=== PATIENT | male | born 1995 | race Caucasian/White ===

== ENCOUNTER 2023-09-12 06:46 | Emergency (ER) | payer MEDICAID, SELFPAY ==
[2023-09-12 06:46] VITALS: BP 99/68; PULSE 107; RESP 20; TEMP 36.3; O2SAT 94; BMI 33.0
--- NOTE | 2023-09-12 07:06 | EX.ED.DYSGE1 ---
HPI History of Present Illness Chief Complaint: Nausea/Vomiting/Diarrhea Informant: patient Narrative Narrative: Patient presents with nausea vomiting diarrhea and abdominal pain. Tuesday afternoon, patient started with some diarrhea. It then progressed from soft to watery. He then got some cramping and vomiting. He has never seen blood in either. He is continued to have nausea vomiting and diarrhea through this morning. His last episode was about 3 hours ago. He has never had a fever at any time. He has had some increased epigastric pain this morning. He also notes that he really has not urinated a lot and feels very dry. But he has no burning or discomfort with urination. He has no difficulty starting his stream. He has never had any abdominal surgeries. He cannot think of any foods drinks or other exposures that he has had that may have caused this. PFSH PFS Medical History no medical history Home Medications ondansetron 4 mg disintegrating tablet 4 mg PO Q8H PRN PRN Nausea #10 tabs 09/12/23 [Rx Last Taken Unknown] promethazine 25 mg tablet 25 mg PO Q6H PRN PRN Nausea #10 TABLETS 09/12/23 [Rx Last Taken Unknown] Allergy/AdvReac Type Severity Reaction Status Date / Time No Known Allergies Allergy Verified 09/12/23 06:49 Surgical History no surgical history Social History Smoking Status: Never smoker ROS ROS ED ROS Narrative A complete review of systems was performed and is negative except as documented in the history of present illness. Some specific details below. Constitutional: No recent fevers or chills. EYE: No visual complaints or pain. ENT: No difficulty swallowing. No swelling. No pain. No GERD symptoms or history of GERD. CV: No chest pain or palpitations. He has not been lightheaded or syncopal. Respiratory: No dyspnea. No hemoptysis. No difficulty taking breaths. GI: Please see history of present illness. : No frequency dysuria or hematuria. He does state he has decreased amount of urination though. Musculoskeletal: No recent trauma. No pains myalgias or arthralgias. Skin: No rash. Nondiaphoretic. No yellowing of skin. Neuro: No weakness or numbness. Endocrine: No polyuria or polydipsia. EXAM Physical Exam Narrative Exam Narrative: CONSTITUTIONAL: Patient is nontoxic in appearance. The patient looks comfortable. HEENT: No notable trauma. Mucous membranes do look rather dry. No sinus tenderness. No indication of pain with swallowing. EYES: No conjunctival injection. There is no icterus. CARDIOVASCULAR: Mildly tachycardic rate. Regular rhythm. No notable murmur. No JVD. RESPIRATORY: No respiratory distress. Breathing is unlabored. No wheezes. No rhonchi. No rales. No pain with a deep breath. GASTROINTESTINAL: Not distended. Bowel sounds are normal. I feel no mass. There is no hernia. He has some mostly epigastric mild tenderness but no rebound or guarding. I am not getting any tenderness at all in the lower abdomen. Upper abdomen is clearly more central and does not lean right or left. GENITOURINARY: No tenderness over the bladder. No CVA tenderness. MUSCULOSKELETAL: Atraumatic. No peripheral edema. No cord. No tenderness along the deep venous system. No asymmetry. NEUROLOGICAL: Patient is alert and appropriate. No gross focal deficit noted. SKIN: No noted rashes. No diaphoresis. PSYCHIATRIC: Patient is relaxed and appropriate Const Vital Signs: 09/12/23 06:46 Temperature 97.4 F L Temperature Source Temporal Pulse Rate 107 H Respiratory Rate 20 H Blood Pressure 99/68 Blood Pressure Mean 78 Pulse Ox 94 Oxygen Delivery Method Room Air MDM MDM MDM Narrative Medical decision making narrative: CBC shows mild elevation in the white count and slight elevation of hemoglobin. This may be due to some hemoconcentration with dehydration. His platelets are normal though. Basic metabolic panel shows an elevation of his creatinine over normal as well as a slight elevation in glucose. Glucose will need to be rechecked. He is given IV fluids for the suspected dehydration. Liver function test show no marked abnormalities. Lipase is normal at 36. Patient was given IV fluids and Zofran as well as pantoprazole IV. We rechecked him. Both his pain and nausea is better. Pain is almost gone. Nausea is a lot better but still present. We will give him some Phenergan pending completion of IV fluids. We let the patient rest. With fluids and meds he is feeling markedly better. He states that nausea is gone. He states the epigastric pain is almost completely gone. But he feels well. Repeat exam shows very benign abdomen. I do not think we need to do a CT scan at this time. He has no significant elevation in the white count. He has no fever. He has no tenderness of note at all. We did discuss reasons to return that would include worsening pain vomiting blood in the vomitus or stool fevers or other concerns. Lab Data Attestation: I reviewed the patient's lab results. Labs: Laboratory Results - last 24 hr 09/12/23 06:58 WBC 11.6 H RBC 6.27 H Hgb 18.6 H* Hct 58.7 H MCV 93.6 MCH 29.7 MCHC 31.7 L RDW Std Deviation 43.8 RDW Coeff of Ivon 12.7 Plt Count 314 MPV 9.7 Immature Gran % (Auto) 0.300 Neut % (Auto) 71.5 H Lymph % (Auto) 11.4 L [place] % (Auto) 15.6 H Eos % (Auto) 1.1 Baso % (Auto) 0.1 Absolute Neuts (auto) 8.3 H Absolute Lymphs (auto) 1.32 Nucleated RBC % 0 Sodium 136 Potassium 3.8 Chloride 106 Carbon Dioxide 21.0 Anion Gap 9 BUN 23 H Creatinine 1.59 H Estim Creat Clear Calc 84.15 Est GFR (MDRD) Af Amer 68 Est GFR (MDRD) Non-Af 56 L BUN/Creatinine Ratio 14.5 Glucose 162 H Calcium 9.4 Total Bilirubin 0.70 AST 18 ALT 44 Alkaline Phosphatase 104 Total Protein 9.2 H Albumin 4.2 Globulin 5.0 H Albumin/Globulin Ratio 0.8 L Lipase 36 Discharge Plan Triage Chief Complaint: Nausea/Vomiting/Diarrhea ED Provider: Oliver Hennessy Dx/Rx/DC Orders Clinical Impression: Nausea vomiting and diarrhea, Abdominal pain, Dehydration Instructions: ED Vomiting and Diarrhea ... Prescriptions: New promethazine [promethazine] 25 mg tablet 25 mg PO Q6H PRN PRN (Reason: Nausea) Qty: 10 0RF ondansetron [ondansetron] 4 mg tablet,disintegrating 4 mg PO Q8H PRN PRN (Reason: Nausea) Qty: 10 0RF Primary Care Provider: Care Physician,No Primary Referrals: Antoinette Francis MD [Med Staff - Progressive Care Manager] - 3-5 Days if not improving NOT,DEFINED [Non-Staff] - Disposition Disposition: Home, Self Care
[2023-09-12] MEDS: 0.9% Normal Saline (1000mL) 2,000 ML 1000 ML IV (07:11)
[2023-09-12] MEDS: Ondansetron 4 MG/2 ML Vial IV (07:11)
[2023-09-12 07:21] LABS: Absolute Lymphocyte Count 1.32 X10^3/uL (0.83-4.51); Absolute Neutrophil Count 8.3 X10^3/uL (2.0-7.7); Basophil# 0.01 X10^3/uL; Basophil% 0.1 % (0-1); Eosinophil# 0.13 X10^3/uL; Eosinophils% 1.1 % (0-5); Hemoglobin 18.6 g/dL (13.0-16.5); Lymphocyte # 1.32 X10^3/ul (0.83-4.51); Lymphocyte % 11.4 % (19-41); Mean Corp Hgb Conc 31.7 g/dL (32-36); Mean Corpuscular Hgb 29.7 pg (27.0-32.0); Mean Corpuscular Volume 93.6 fL (80-94); Mean Platelet Vol. 9.7 fl (6.2-12.0); Monocyte% 15.6 % (0-10); NRBC Flagged by Analyzer 0 % (0-5); Neutrophil # 8.28 X10^3/uL (2.7-7.7); Neutrophil % 71.5 % (47-70); POSITIVE DIFFERENTIAL YES; POSITIVE MORPHOLOGY YES; Platelet Count 314 K/mm3 (150-450); RBC Distribution Width CV 12.7 % (11.6-14.6); RBC Distribution Width SD 43.8 fl (35.1-43.9); Red Blood Count 6.27 M/mm3 (4.6-6.2); White Blood Count 11.6 K/mm3 (4.4-11.0)
[2023-09-12 07:23] LABS: Differential Indicated SCAN CRITERIA MET; Hematocrit 58.7 % (40-54)
[2023-09-12] MEDS: Pantoprazole Sodium 80 MG in 0.9% Normal Saline (50mL Bag) 15 ML 420 MG IV BOLUS (07:28)
[2023-09-12 07:31] LABS: ALB/GLOB Ratio 0.8 RATIO (0.9-2.4); AST(SGOT) 18 U/L (15-37); Alanine Aminotransfer ALT/SGPT 44 U/L (16-61); Albumin, Serum 4.2 g/dL (3.2-5.0); Alkaline Phosphatase 104 U/L (45-117); Anion Gap 9 (5-15); BUN 23 mg/dL (7-18); BUN/Creat Ratio 14.5 RATIO (10-20); Calcium,Total 9.4 mg/dL (8.5-10.1); Chloride 106 mmol/L (98-107); Creatinine, Serum 1.59 mg/dL (0.70-1.30); EST Glomerular Filtration Rate 56 mL/min (>60); Est Glom Filt Rate - Afr Amer 68 mL/min (>60); Estimated Creatinine Clearance 84.15 ml/min; Glucose 162 mg/dL (74-106); Lipase 36 U/L (13-75); Potassium 3.8 mmol/L (3.5-5.1); Protein, Total 9.2 g/dL (6.4-8.2); Sodium Level 136 mmol/L (136-145)
[2023-09-13 10:28] LABS: Pathologist Review Reviewed
== END 2023-09-12 10:11 | disposition home or self-care (01) ==
PROVIDERS: Emergency Provider Emergency Medicine; Visit Provider Emergency Medicine
DX: R11.2 Nausea with vomiting, unspecified (principal); R19.7 Diarrhea, unspecified; R10.9 Unspecified abdominal pain; E86.0 Dehydration
CPT/HCPCS: 80053; 83690; 85025; 96365; 96375; 99284; J7030; A4216; J2405; J3490

== ENCOUNTER 2024-01-04 12:40 | Emergency (ER) | payer OTHER, SELFPAY ==
[2024-01-04 12:42] VITALS: BP 129/63; PULSE 135; RESP 25; TEMP 36; O2SAT 90; BMI 33.4
--- NOTE | 2024-01-04 13:09 | EDS_ITS ---
HPI History of Present Illness Chief Complaint: Overdose Informant: patient Onset/Context/Timing Onset: Today and Hours Context: Gradual Onset Timing: Continuous Current Severity: Moderate Maximum Severity: Moderate Associated Symptoms Associated Symptoms: Negative for vomiting* or diarrhea* Prehospital Treatment: Naloxone, Glucose, Oxygen, BVM, CPR and other Narrative Narrative: 28-year-old male no seen past medical history. States he is on no chronic medications. Today he bought [id number] THC and its instructions to take 1 wait an hour take another. Patient took 7 at 1 time. Patient thinks it may have been laced. He denies other complaints. He is obviously intoxicated. Prior similar symptoms: No Recent Illness/Hospitalization: No PFSH PFSH Medical History no medical history no medical history Home Medications ondansetron 4 mg disintegrating tablet 4 mg PO Q8H PRN PRN Nausea #10 tabs 09/12/23 [Rx Last Taken Unknown] promethazine 25 mg tablet 25 mg PO Q6H PRN PRN Nausea #10 TABLETS 09/12/23 [Rx Last Taken Unknown] Allergy/AdvReac Type Severity Reaction Status Date / Time No Known Allergies Allergy Verified 09/12/23 06:49 Social History Smoking Status: Never smoker ROS ROS ED ROS Narrative Denies recent illness. Review of Systems ROS Unobtainable: Denies due to encephalopathy Constitutional Constitutional ED: Denies fever(s) Eyes Eyes: Denies burning ENT ENT ED: Denies dental pain Cardiovascular Cardiovascular: Reports none Respiratory/Chest Respiratory/Chest: Denies cough Gastrointestinal Gastrointestinal: Denies abdominal pain Genitourinary Genitourinary ED: Reports none Musculoskeletal Musculoskeletal: Reports none Integumentary Reports none Neurologic Neurologic: Reports none Psychiatric Psychiatric: Reports none Endocrine Endocrinology: Reports none Hematologic/Lymphatic Hematologic/Lymphatic: Reports none Allergic/Immunologic Allergic/Immunologic ED: Reports none EXAM Physical Exam Narrative Exam Narrative: 28-year-old male he is tachycardic on the monitor 135. Otherwise vital signs are stable. H EENT exam unremarkable. He is obviously high at this time. Moist mucous membranes. Neck nontender. Lungs clear to auscultation bilaterally. Heart tachycardic 135 no murmur. Chest wall ribs nontender. Abdomen soft nontender. Moving all 4 extremities. Neurologically is awake. He is alert. His eyes are open. He is answering questions. He is following commands. Const Vital Signs: 01/04/24 12:42 01/04/24 13:41 01/04/24 14:00 Temperature 96.8 F L Temperature Source Temporal Pulse Rate 135 H 126 H Respiratory Rate 25 H 20 H 18 Blood Pressure 129/63 H 105/60 Blood Pressure Mean 85 75 Pulse Ox 90 88 Oxygen Delivery Method Room Air Room Air 01/04/24 15:00 01/04/24 16:00 Temperature Temperature Source Pulse Rate 96 Respiratory Rate 18 16 Blood Pressure 109/57 L Blood Pressure Mean 74 Pulse Ox 91 Oxygen Delivery Method Room Air Positive well nourished, well developed, alert, oriented x3, average body habitus and no limitations; Negative for cachectic, contractures or unkempt General Appearance ED: well developed; Negative for unkempt, cachectic or contractures Orientation / Consciousness: awake and oriented to person Exam Limitations: no limitations; Negative for altered mental status Nutritional Appearance: Negative for cachectic HEENT Reports normocephalic and head/scalp atraumatic normocephalic, normal to inspection and atraumatic; Negative for trauma Face and Sinus: normal facial exam Nose: external nose normal External Ear: external ears normal Mouth ED: Yes oral and palatal mucosa normal Mouth: oral and palatal mucosa normal Throat: posterior oropharynx normal Eyes PERRL, EOMs intact bilaterally, conjunctivae normal and no scleral icterus General Eye ED: Yes normal appearance of both eyes Alignment: alignment normal Periorbital: periorbital findings normal Eyelid: eyelids normal Conjunctiva: conjunctiva normal Sclera: sclera normal Pupil: PERRL Neck full ROM, No nuchal rigidity, no lymphadenopathy, supple, no meningeal signs, no JVD, thyroid normal and No nodes General: normal visual inspection Lymph Lymphatic: no lymphadenopathy noted and no lymphedema noted Chest Wall inspection of chest normal and palpation of chest normal Resp normal respiratory effort, normal air movement, no retractions, no use of accessory muscles and clear to auscultation bilaterally Effort and Inspection: able to speak in complete sentences and symmetric chest movement Auscultation: clear to auscultation bilaterally Cardio regular rhythm, S1 normal heart sound, S2 normal heart sound, no murmurs, no rub, no gallops, no clicks, no JVD and peripheral pulses 2+ throughout; Negative for regular rate or diaphoretic Rate: tachycardic Rhythm: regular rhythm Heart Sounds: S1 normal and S2 normal Peripheral Pulses: pulses 2+ throughout GI normal to inspection, nondistended, normoactive bowel sounds, soft to palpation, non-tender, non-distended and no masses Auscultation: normoactive bowel sounds Palpation: soft; Negative for firm, tender, guarding or rebound tenderness present no CVA tenderness Back/Spine no CVA tenderness, normal ROM and normal to inspection Extremity normal to inspection, full ROM, no joint enlargement, no clubbing, cyanosis or edema, no calf tenderness and no pedal edema Neuro moves all extremities and no focal motor deficits Neuro Narrative: Patient is high. Sensorium / Orientation: awake, alert and oriented to person Speech: speech normal Motor Exam: strength 5/5 throughout Psych mental status grossly normal, thought process normal, cooperative, affect normal, speech normal and activity/motor behavior normal Appearance: grossly normal; Negative for unkempt Attitude: calm and engaged Activity / Motor Behavior: appropriate eye contact Mood & Affect: euthymic mood Thought Process: normal thought process Thought Content: normal thought content Skin no rashes or lesions noted, no wounds, skin turgor normal, no jaundice, no petechiae and no mottling General Skin Exam: no breakdown Lesions: no lesions Rashes: no rashes Trauma: no lacerations or abrasions MDM MDM MDM Narrative Medical decision making narrative: 28-year-old male accidental overdose on THC. Will be observed. Screening labs. Monitor. Repeat exam patient doing well at 3:08 PM patient doing well. Still exhibits signs of being high on the THC. Vital signs are currently stable. His current heart rate is 110. His pulse ox is 98%. He is awake alert. Answering questions. I offered him a talk screen but explained doing that if there was anything else in the edibles that he ate it may not show up and he deferred. Repeat exam at 4:29 PM. Patient is doing well. He sitting upright in bed. He is awake and alert. THC appears to be wearing off. His vital signs are stable. Once he can get a ride home he will be discharged. Lab Data Attestation: I reviewed the patient's lab results. Lab results narrative: CBC unremarkable. White count of 13. H&H 15 and 45. Platelets 374. Electrolytes show potassium 3.1. Gap is 7. Normal BUN of 16. Creatinine of 1.1. Glucose 164. Liver enzymes normal. Labs: Laboratory Results - last 24 hr 01/04/24 12:50 WBC 13.0 H RBC 5.16 Hgb 15.4 Hct 45.9 MCV 89.0 MCH 29.8 MCHC 33.6 RDW Std Deviation 41.9 RDW Coeff of Ivon 12.8 Plt Count 374 MPV 10.1 Immature Gran % (Auto) 0.200 Neut % (Auto) 42.9 L Lymph % (Auto) 42.1 H [place] % (Auto) 11.6 H Eos % (Auto) 2.4 Baso % (Auto) 0.8 Absolute Neuts (auto) 5.6 Absolute Lymphs (auto) 5.48 H Nucleated RBC % 0 Reactive Lymphocytes 1+ Sodium 140 Potassium 3.1 L Chloride 108 H Carbon Dioxide 25.0 Anion Gap 7 BUN 16 Creatinine 1.18 Estim Creat Clear Calc 133.51 Est GFR (MDRD) Af Amer 95 Est GFR (MDRD) Non-Af 79 BUN/Creatinine Ratio 13.6 Glucose 164 H Calcium 9.3 Total Bilirubin 0.50 AST 21 ALT 35 Alkaline Phosphatase 91 Total Protein 7.9 Albumin 3.9 Globulin 4.0 Albumin/Globulin Ratio 1.0 Discharge Plan Triage Chief Complaint: Overdose ED Provider: Oniel Manuel Dx/Rx/DC Orders Clinical Impression: Accidental overdose, History of marijuana use Instructions: Understanding Synthetic Marijuana Prescriptions: No Action promethazine [promethazine] 25 mg tablet 25 mg PO Q6H PRN PRN (Reason: Nausea) Qty: 10 0RF ondansetron [ondansetron] 4 mg tablet,disintegrating 4 mg PO Q8H PRN PRN (Reason: Nausea) Qty: 10 0RF Primary Care Provider: Care Physician,No Primary Referrals: Kayden Hamilton MD [Med Staff - Electronics Assembler] - As Needed Care Physician,No Primary [Primary Care Provider] - [facility] [Non-Staff] - As Needed Activity Restrictions/Additional Instructions: Today you had overconsumption of the THC which [id number] the symptoms. It may or may not have been laced. You can follow-up with the store you brought it from. I would strongly encourage you to stop using THC. You may want to consider following up with [facility] Gomez-term use can cause addiction and can be a gateway to stronger pain medicati ons or stronger illegal drugs use. No more THC or alcohol use in the next 24 hours. Disposition Disposition: Home, Self Care
[2024-01-04 13:33] LABS: Absolute Lymphocyte Count 5.48 X10^3/uL (0.83-4.51); Absolute Neutrophil Count 5.6 X10^3/uL (2.0-7.7); Basophil% 0.8 % (0-1); Eosinophil# 0.31 X10^3/uL; Eosinophils% 2.4 % (0-5); Hematocrit 45.9 % (40-54); Hemoglobin 15.4 g/dL (13.0-16.5); Lymphocyte # 5.48 X10^3/ul (0.83-4.51); Lymphocyte % 42.1 % (19-41); Mean Corp Hgb Conc 33.6 g/dL (32-36); Mean Corpuscular Hgb 29.8 pg (27.0-32.0); Mean Platelet Vol. 10.1 fl (6.2-12.0); Monocyte# 1.51 X10^3/uL; Monocyte% 11.6 % (0-10); NRBC Flagged by Analyzer 0 % (0-5); Neutrophil % 42.9 % (47-70); POSITIVE DIFFERENTIAL YES; POSITIVE MORPHOLOGY YES; Platelet Count 374 K/mm3 (150-450); RBC Distribution Width CV 12.8 % (11.6-14.6); RBC Distribution Width SD 41.9 fl (35.1-43.9); Red Blood Count 5.16 M/mm3 (4.6-6.2)
[2024-01-04 13:35] LABS: Differential Indicated SCAN CRITERIA MET
[2024-01-04] MEDS: 0.9% Normal Saline (1000mL) 1,000 ML 1000 ML IV (13:36)
[2024-01-04 13:41] VITALS: BP 105/60; PULSE 126; RESP 20; O2SAT 88
[2024-01-04 13:47] LABS: AST(SGOT) 21 U/L (15-37); Alanine Aminotransfer ALT/SGPT 35 U/L (16-61); Albumin, Serum 3.9 g/dL (3.2-5.0); Alkaline Phosphatase 91 U/L (45-117); Anion Gap 7 (5-15); BUN 16 mg/dL (7-18); BUN/Creat Ratio 13.6 RATIO (10-20); Calcium,Total 9.3 mg/dL (8.5-10.1); Chloride 108 mmol/L (98-107); Creatinine, Serum 1.18 mg/dL (0.70-1.30); EST Glomerular Filtration Rate 79 mL/min (>60); Est Glom Filt Rate - Afr Amer 95 mL/min (>60); Estimated Creatinine Clearance 133.51 ml/min; Glucose 164 mg/dL (74-106); Potassium 3.1 mmol/L (3.5-5.1); Protein, Total 7.9 g/dL (6.4-8.2); Sodium Level 140 mmol/L (136-145)
[2024-01-04 14:00] VITALS: RESP 18
[2024-01-04 14:09] LABS: Reactive Lymphocyte 1+
[2024-01-04 15:00] VITALS: RESP 18
[2024-01-04 16:00] VITALS: BP 109/57; PULSE 96; RESP 16; O2SAT 91
== END 2024-01-04 17:59 | disposition home or self-care (01) ==
PROVIDERS: Emergency Provider Emergency Medicine; Referring Provider Emergency Medicine; Visit Provider Emergency Medicine
DX: T40.711A Poisoning by cannabis, accidental (unintentional), initial encounter (principal); F12.929 Cannabis use, unspecified with intoxication, unspecified; R00.0 Tachycardia, unspecified
CPT/HCPCS: 80053; 85025; 96360; 99284; J7030; A4216

== ENCOUNTER 2024-05-05 22:42 | Emergency (ER) | payer OTHER, SELFPAY ==
[2024-05-05 22:43] VITALS: BP 139/100; PULSE 69; RESP 18; TEMP 36.1; O2SAT 98; BMI 35.3
--- NOTE | 2024-05-05 23:24 | ED.VIS.LOWEX ---
HPI History of Present Illness Chief Complaint: Laceration Informant: patient Narrative Narrative: Patient is a 29-year-old male [id number] presenting with a laceration to his left thumb. Patient was using a knife and cutting foods or processed when he actually cut the tip of his thumb. His was concerned and he came in for the evaluation. He is not on any blood thinners. Tetanus Immunization: Unknown (Declining booster at this time) PFSH PFS Medical History no medical history Home Medications ?Medication ?Instructions ?Recorded ?Last Taken ?Type NK 05/05/24 Unknown History Allergy/AdvReac Type Severity Reaction Status Date / Time No Known Allergies Allergy Verified 05/05/24 22:42 Social History Smoking Status: Never smoker ROS ROS ED Constitutional Constitutional ED: Denies chills or fever(s) Musculoskeletal Musculoskeletal: Denies arthralgias or myalgias Integumentary Reports other Details: Left thumb laceration Neurologic Neurologic: Denies paresthesias or weakness Hematologic/Lymphatic Hematologic/Lymphatic: Denies easy bleeding or easy bruising EXAM Physical Exam Const Vital Signs: 05/05/24 22:43 05/06/24 00:03 Temperature 96.9 F L 97.3 F L Temperature Source Temporal Temporal Pulse Rate 69 80 Respiratory Rate 18 18 Blood Pressure 139/100 H Blood Pressure Mean 113 Pulse Ox 98 95 Oxygen Delivery Method Room Air Room Air Positive well nourished and well developed General Appearance ED: well developed and NAD HEENT normocephalic and atraumatic Resp normal respiratory effort Cardio regular rate and regular rhythm Cardio Narrative: 2+ radial pulse?left Extremity normal to inspection and full ROM Neuro moves all extremities Sensorium / Orientation: alert Motor Exam: Negative for general weakness Psych mental status grossly normal Skin Skin Narrative: Approximately 0.5 cm partial-thickness skin avulsion to the distal aspect of the lateral left thumb. No significant bleeding at this time. No involvement of the nailbed. MDM MDM MDM Narrative Medical decision making narrative: Patient evaluated for laceration to his left thumb. He declines tetanus update at this time stating it was a clean and new knife. He is otherwise neuro vastly intact. Bleeding is controlled. Based on mechanism injury do not think requires antibiotics. Counseled that this is more of an avulsion and therefore is not amenable to any type of suture repair. Counseled on using petroleum jelly based ointment such as bacitracin or just Vaseline with dressing changes to prevent tearing off the scab. Discussed direct pressure if it starts bleeding again. He verbalized agreement understand this plan. Patient discharged home in stable condition. Patient does tell me that he would like referral to have his thyroid checked as he has had about 100 pound weight gain over the past year. Patient is given referral for new primary care doctor as he does not currently have 1. Discharge Plan Triage Chief Complaint: Laceration ED Provider: Roseanne Garcia Dx/Rx/DC Orders Clinical Impression: Laceration of finger Instructions: ED Laceration, All Closures, ED Skin Tear (Skin Avulsion) Prescriptions: No Action NK Primary Care Provider: Care Physician,No Primary Referrals: Nkechi Marc MD [Med Staff - Graphic Design Manager] - As Needed Care Physician,No Primary [Primary Care Provider] - Print Language: Polish Disposition Disposition: Home, Self Care Discharge Date/Time: 05/06/24 00:03
[2024-05-06 00:03] VITALS: PULSE 80; RESP 18; TEMP 36.3; O2SAT 95
== END 2024-05-06 00:03 | disposition home or self-care (01) ==
PROVIDERS: Emergency Provider Emergency Medicine; Visit Provider Emergency Medicine
DX: S61.012A Laceration without foreign body of left thumb without damage to nail, initial encounter (principal); W26.0XXA Contact with knife, initial encounter; Y93.9 Activity, unspecified; F17.200 Nicotine dependence, unspecified, uncomplicated
CPT/HCPCS: 99282

== ENCOUNTER 2024-06-23 05:37 | Emergency (ER) | payer OTHER, SELFPAY ==
[2024-06-23 05:37] VITALS: BP 150/96; PULSE 65; RESP 17; TEMP 36.6; O2SAT 98; BMI 32.1
--- NOTE | 2024-06-23 06:00 | RAD_ITS ---
STUDY: X-RAY - RIGHT ANKLE REASON FOR EXAM: Male, 29 years old patient with ankle injury. TECHNIQUE: 3 view(s) of the ankle. COMPARISON: None. FINDINGS: Normal visualized distal tibia and fibula. Normal medial and lateral malleoli. Normal tibiotalar articulation and ankle mortise. Normal visualized talus and calcaneus. Tarsal bones have generally normal appearance and alignment. There is moderately severe soft tissue swelling of the lateral ankle. RAD/Ankle min 3 Views IMPRESSION: 1. No radiographic evidence for acute displaced fracture. 2. If there is clinical concern for acute fracture, follow-up radiographs in 7-10 days maybe helpful in evaluating a healing radiographically occult fracture. Electronically Signed: Jocelyn Osman MD at 8:15 EDT ,
--- NOTE | 2024-06-23 06:04 | EDS_ITS ---
HPI History of Present Illness Chief Complaint: Lower Extremity Injury Narrative Narrative: Patient is a 29-year-old male who reports no significant past medical history. He states that on Tuesday around 6 PM he was stepping out of his car when he lost his balance and fell twisting his right ankle. He states he was able to get up and ambulate but noted pain in the right ankle that was worse with motion and weightbearing. He states that he stayed off of it throughout the night but this morning when he awoke and tried to walk there was persistent pain and with concern for fracture he comes in for evaluation [facility] Medical History no medical history no medical history Home Medications ?Medication ?Instructions ?Recorded ?Last Taken ?Type oxycodone-acetaminophen 5 mg-325 1 tab PO Q6H PRN pain 3 days #12 06/23/24 Unknown Rx mg tablet (Percocet) tabs Allergy/AdvReac Type Severity Reaction Status Date / Time No Known Allergies Allergy Verified 06/23/24 05:38 Social History Smoking Status: Never smoker ROS ROS ED Constitutional Constitutional ED: Denies chills or fever(s) Eyes Eyes: Denies blurry vision or change in vision ENT ENT ED: Denies sore throat Cardiovascular Cardiovascular: Denies chest pain Respiratory/Chest Respiratory/Chest: Denies cough or dyspnea Gastrointestinal Gastrointestinal: Denies abdominal pain, diarrhea, nausea or vomiting Genitourinary Genitourinary ED: Denies dysuria Musculoskeletal Musculoskeletal: Reports other Details: Positive right ankle pain ; Denies back pain or neck pain Integumentary Denies Abrasions or rash Neurologic Neurologic: Denies headache(s) or paresthesias Hematologic/Lymphatic Hematologic/Lymphatic: Denies easy bleeding or easy bruising EXAM Physical Exam Const Vital Signs: 06/23/24 05:37 06/23/24 07:02 Temperature 97.8 F 97.8 F Temperature Source Oral Pulse Rate 65 66 Respiratory Rate 17 17 Blood Pressure 150/96 H 145/85 H Blood Pressure Mean 114 105 Pulse Ox 98 98 Oxygen Delivery Method Room Air Positive well nourished, well developed and obese General Appearance ED: well developed; Negative for pallor Nutritional Appearance: obese HEENT HEENT Narrative: Normocephalic atraumatic Eyes PERRL and EOMs intact bilaterally Neck supple Resp normal respiratory effort and clear to auscultation bilaterally Cardio regular rate and regular rhythm Back/Spine Back/Spine Narrative: No bony deformity or step-off of the cervical spine no midline tenderness to palpation Extremity Extremity Narrative: Right lower extremity is neurovascularly intact. There is soft tissue swelling of the right ankle diffusely. No obvious bony deformity or joint effusion. There is mild ecchymosis noted along the right lateral malleolus. Achilles tendon is intact. There is mild laxity with inversion testing of the right ankle compared to left. No pain on palpation of the right foot. No proximal pain of the right tibia noted. Remainder of the exam is normal Neuro oriented x3, CN's II-XII intact bilaterally and no sensory deficits noted Sensorium / Orientation: alert Psych Psych Narrative: Patient has a nervous/anxious affect Skin no rashes or lesions noted and no wounds Skin Narrative: Soft tissue swelling with faint ecchymosis along the right ankle as documented above General Skin Exam: Negative for jaundice or pallor MDM MDM MDM Narrative Medical decision making narrative: Patient presented to the ER hypertensive but otherwise with stable vitals. He reported a mechanical fall roughly 12 hours ago and therefore there is no need for cardiac or syncope workup. He did not strike his head or have loss of consciousness nor is he on a blood thinner or have history of bleeding disorder so there is no need for head CT. As there is concern for fracture versus dislocation versus ankle sprain an x-ray was obtained. X-ray revealed no signs of acute trauma but as he does have mild laxity with inversion testing of the right ankle compared to left he has a grade 2 ankle sprain. He is closed and neurovascularly intact so therefore there is no need for emergent orthopedic/ podiatry consultation. Patient will be placed in a walking boot for stabilization and given pain control and is otherwise safe for discharge. History & Record Review Discussion w/independent historian: Patient Radiography Diagnostic Testing: Right ankle x-ray as interpreted by the emergency medicine physician reveals no acute fracture dislocation or joint effusion Discharge Plan Triage Chief Complaint: Lower Extremity Injury ED Provider: Joseph De Anda Dx/Rx/DC Orders Clinical Impression: Grade 2 ankle sprain, Hypertension Instructions: Treating Ankle Sprains, ED Ankle Sprain (Adult) Prescriptions: New oxycodone-acetaminophen [Percocet] 5-325 mg tablet 1 tab PO Q6H PRN (Reason: pain) 3 Days Qty: 12 0RF Primary Care Provider: Care Physician,No Primary Referrals: Koby Paniagua DPM [Med Staff - Active Staff] - Care Physician,No Primary [Primary Care Provider] - Activity Restrictions/Additional Instructions: Wear your walking boot for stabilization to help reduce pain and speed healing. Follow-up with podiatry for repeat evaluation and return to the ER should you have any further concerns or worsening of symptoms Print Language: Danish Disposition Disposition: Home, Self Care Discharge Date/Time: 06/23/24 07:03
[2024-06-23 07:02] VITALS: BP 145/85; PULSE 66; RESP 17; TEMP 36.6; O2SAT 98
== END 2024-06-23 07:03 | disposition home or self-care (01) ==
PROVIDERS: Emergency Provider Emergency Medicine; Visit Provider Emergency Medicine
DX: S93.401A Sprain of unspecified ligament of right ankle, initial encounter (principal); I10 Essential (primary) hypertension; W19.XXXA Unspecified fall, initial encounter; E66.9 Obesity, unspecified
CPT/HCPCS: 73610; 99283